=== PATIENT | male | born 1990 | race Caucasian/White ===

== ENCOUNTER 2024-12-19 10:00 | Emergency (ER) | payer MEDICAID ==
[~2024-12-19] VITALS: Ht 188 cm; Wt 70.3 kg
[2024-12-19] MEDS: IPRATROPIUM BROMIDE 0.5 MG/2.5 ML NEBU NEB ONE ×2 (10:15→13:16)
[2024-12-19] MEDS: ALBUTEROL SULFATE 2.5 MG/3 ML NEBU NEB ONE ×2 (10:15→13:16)
[2024-12-19] MEDS ORDERED: ALBUTEROL SULFATE 2.5 MG/3 ML NEBU ONE ×2 (10:17→13:19)
[2024-12-19] MEDS ORDERED: IPRATROPIUM BROMIDE 0.5 MG/2.5 ML NEBU ONE ×2 (10:17→13:19)
[2024-12-19 10:20] VITALS: O2SAT 93
[2024-12-19] MEDS ORDERED: ALBU8.5H8 INH ×2 (10:22→15:13)
[2024-12-19] MEDS: IV NORMAL SALINE 1000 ML BAG IV ONE (10:28)
[2024-12-19 10:33] LABS: PLATELET COUNT (AUTO) 232 K/uL (152-348); RED BLOOD CELL COUNT(AUTO) 5.30 MIL/uL (4.06-5.63); RED CELL DISTRIBUTION WIDTH 13.1 % (12.1-16.2); WHITE BLOOD COUNT (AUTO) 10.1 K/uL (3.6-10.2)
[2024-12-19 10:39] LABS: CREATININE 0.8 mg/dL (0.6-1.3); SODIUM SERUM 138 mmol/L (136-145); UREA NITROGEN, BLOOD 14 mg/dL (7-18)
[2024-12-19 10:42] LABS: ABG BASE EXCESS 1.9 mmol/L (-2.0-3.0); ABG HCO3 27.4 mmol/L (21.0-28.0); ABG PCO2 45.5 mmHg (35.0-48.0); ABG PH 7.397 (7.350-7.450); ABG PO2 109.6 mmHg (83.0-108.0); ABG SITE LEFT BRACHIAL; ABG TOTAL HEMOGLOBIN 16.8 G/dL (13.5-17.5); AaDO2 98.0 mmHg; FIO2 40.0 %; FLOW, BLOOD GAS 5.00 L/min (0.00-30.00)
[2024-12-19 10:45] LABS: ASPARTATE AMINOTRANSFERASE 17 U/L (15-37); TOTAL PROTEIN, SERUM 8.2 g/dL (6.4-8.2)
[2024-12-19 12:00] VITALS: O2SAT 99
[2024-12-19 13:20] VITALS: O2SAT 88
[2024-12-19 15:00] VITALS: O2SAT 93; O2SAT 99
[2024-12-19 15:09] VITALS: BP 143/99
[2024-12-19] MEDS ORDERED: PRED50TA PO (15:13)
[2024-12-19] MEDS ORDERED: AZIT500T4 PO (15:13)
[2024-12-19 15:24] VITALS: BP 143/99; TEMP 98; O2SAT 91
== END 2024-12-19 15:28 | disposition home or self-care (01) ==
LOC: ER 10:00
DX: J45.901 Unspecified asthma with (acute) exacerbation (principal); Z79.52 Long term (current) use of systemic steroids; Z20.822 Contact with and (suspected) exposure to COVID-19
CPT/HCPCS: 99285; 96374; 71045; 96361; 87426; 87804 ×2; 80076; 80048; 83880; 85025; 85379; 87040 ×2; 84484; 36415; 94644; 94645; 82803; 93005; 83605; 36600 ×2; J2919; J7040; A4606; A4663; J3590